=== PATIENT | female | born 1945 | race Caucasian/White ===

== ENCOUNTER 2023-05-10 09:55 | Outpatient (CLI) | payer OTHER, SELFPAY ==
--- NOTE | 2023-05-10 10:15 | CRLHL7_ITS ---
For Patients: As a result of the Century Cures Act, medical imaging exams and procedure reports are released immediately into your electronic medical record. You may view this report before your referring provider. If you have questions, please contact your health care provider. INDICATION: 77-year-old female. Reported history of hyperparathyroidism. The patient reportedly is going to undergo a parathyroidectomy in May 2023. A right mid thyroid lobe nodule was incidentally visualized on an outside thyroid ultrasound. Ultrasound for fine-needle aspiration/biopsy. PROCEDURE: Informed consent was obtained. Benefits and risks were discussed. The patient agreed to proceed. [facility]ums Protocol: A. Preprocedure verification complete: Yes 1) Relevant information/documentation available, reviewed and properly matched to the patient; 2) Consent accurate and complete; 3) Equipment and supplies available. B. Site marking complete: Yes Site marked if not in continuous attendance with patient. C. TIME OUT completed: Yes Time Out was conducted just prior to starting procedure to verify the eight required elements: 1) Patient identity, 2) Consent accurate and complete, 3) Position, 4) Correct side/site marked (if applicable), 5) Procedure, 6) Relevant images/results properly labeled and displayed (if applicable), 7) Antibiotics/irrigation fluids (if applicable), 8) Safety precautions, 9) Laboratory results were reviewed. Utilizing sterile technique and 1% lidocaine for local anesthetic, a series of seven 25-gauge needles were advanced into the 1.2 x 1.4 x 2.1 cm mid right thyroid lobe nodule. The nodule is mildly echogenic but well-circumscribed. The patient tolerated the fine-needle aspiration/biopsy well. No immediate complications. No subsequent imaging. The final pathology is pending. IMPRESSION: Technically successful ultrasound-guided fine-needle aspiration/biopsy of a 2.1 cm mid right thyroid lobe echogenic nodule. Dictated by Shahid Armendariz MD @ 05/10/2023 1:29:54 PM (Electronically Signed)
== END 2023-05-10 09:56 | disposition home or self-care (01) ==
PROVIDERS: PCP Family Medicine; Visit Provider Surgery
DX: E04.1 Nontoxic single thyroid nodule (principal)
CPT/HCPCS: 10005; 88173